=== PATIENT | female | born 1995 | race African-American/Black ===

== ENCOUNTER 2018-04-10 12:28 | Emergency (ER) | payer MEDICAID ==
[~2018-04-10] VITALS: Ht 170.2 cm; Wt 79.4 kg
[2018-04-10 13:07] VITALS: BP 133/84
[2018-04-10] MEDS ORDERED: KETOROLAC TROMETH 60MG/2ML VIAL IM ONE (14:00)
== END 2018-04-10 14:31 | disposition home or self-care (01) ==
LOC: ER 12:36
DX: S16.1XXA Strain of muscle, fascia and tendon at neck level, initial encounter (principal); S39.012A Strain of muscle, fascia and tendon of lower back, initial encounter; V43.52XA Car driver injured in collision with other type car in traffic accident, initial encounter; Y93.89 Activity, other specified; Y92.89 Other specified places as the place of occurrence of the external cause; Y99.8 Other external cause status
CPT/HCPCS: 72100; 96372; 99284; J1885

== ENCOUNTER 2019-04-23 07:52 | Emergency (ER) | payer MEDICAID ==
[~2019-04-23] VITALS: Ht 170.2 cm; Wt 86.2 kg
[2019-04-23] MEDS ORDERED: methylPREDNISolone SOD SUCC 125 MG/2 ML VL IM ONE (10:15)
[2019-04-23] MEDS ORDERED: cefTRIAXone SOD 1,000 MG VL IM ONE (10:15)
[2019-04-23] MEDS ORDERED: LIDOCAINE 1% HCL (LOCAL ANESTH.) INJ 20ML MDV ONE (10:19)
[2019-04-23 10:30] VITALS: BP 135/85
== END 2019-04-23 11:00 | disposition home or self-care (01) ==
LOC: ER 07:55
DX: J03.90 Acute tonsillitis, unspecified (principal)
CPT/HCPCS: 96372; 99283; J0696; J2001; J2930